=== PATIENT | male | born 1970 | race Caucasian/White ===

== ENCOUNTER 2021-09-01 07:38 | Day surgery (SDC) | payer BC ==
[2021-08-25 14:24] LABS: BASOPHILS # (AUTO) 0.1 X10'3 (0-0.2); BASOPHILS % (AUTO) 0.8 % (0-1); EOSINOPHILS # (AUTO) 0.2 X10'3 (0-0.9); EOSINOPHILS % (AUTO) 1.8 % (0-6); LYMPHOCYTES # (AUTO) 2.7 X10'3 (1.1-4.8); LYMPHOCYTES % (AUTO) 29.9 % (21-51); MEAN CORPUSCULAR HEMOGLOBIN 30.8 PG (27.0-31.0); MEAN CORPUSCULAR HGB CONC 34.8 g/dL (33.0-36.5); MEAN CORPUSCULAR VOLUME 88.5 FL (78-98); MEAN PLATELET VOLUME 8.6 FL (7.4-10.4); MONOCYTES # (AUTO) 0.7 X10'3 (0-0.9); MONOCYTES % (AUTO) 8.4 % (2-12); NEUTROPHILS # (AUTO) 5.3 X10'3 (1.8-7.7); NEUTROPHILS % (AUTO) 59.1 % (42-75); PRE OP HEMATOCRIT 39.4 % (42.0-52.0); PRE OP HEMOGLOBIN 13.7 g/dL (14.0-17.9); PRE OP PLATELET COUNT 253 X10'3 (140-440); RED BLOOD COUNT 4.45 X10'6 (4.70-6.10)
[2021-08-25 14:49] LABS: ALBUMIN 3.9 G/DL (3.4-5.0); ALBUMIN/GLOBULIN RATIO 1.3 (1.1-1.5); ALKALINE PHOSPHATASE 105 IU/L (46-116); BLOOD UREA NITROGEN 16 MG/DL (7-18); BUN/CREATININE RATIO 18.8 (5.4-32.0); CALCIUM 8.8 MG/DL (8.5-10.1); CHLORIDE 105 MMOL/L (99-107); CREATININE 0.85 MG/DL (0.60-1.10); PRE OP ALT 60 U/L (30-65); PRE OP ANION GAP 10 (8-16); PRE OP AST 28 U/L (10-37); PRE OP BILIRUB, TOTAL 0.6 MG/DL (0.0-1.0); PRE OP GLUCOSE 85 MG/DL (70-104); PRE OP POTASSIUM 3.9 MMOL/L (3.4-5.1); PRE OP SODIUM 141 MMOL/L (135-145); TOTAL CARBON DIOXIDE 26.2 MMOL/L (24-32); TOTAL PROTEIN 6.9 G/DL (6.4-8.2); eGFR > 90 ML/MIN
[~2021-09-01] VITALS: Ht 177.8 cm; Wt 71.9 kg
[2021-09-01] VITALS (7 sets, daily range): BP systolic 111–137; BP diastolic 69–84
[~2021-09-01 07:38] MED LIST: ceFAZolin inj. 2,000 MG in dextrose 5%-water 100 ML IV ONE; famotidine 20mg tablet PO ONE; ringers solution, lacted 1,000 ML IV SCH
[2021-09-01] MEDS ORDERED: NO HOME MEDS (08:15)
[2021-09-01] MEDS ORDERED: bacitracin 15gm ointment TP ONE (09:58)
[2021-09-01] MEDS ORDERED: BUPIVAcaine/PF 2.5mg/ml (0.25%) 10ml vial ONE (09:58)
[2021-09-01] MEDS ORDERED: sevoflurane 250ml liquid IH ONE (10:21)
[2021-09-01] MEDS ORDERED: MIDAZolam 1 MG/ML 5ML VIAL ONE (10:25)
[2021-09-01] MEDS ORDERED: fentaNYL/PF 50MCG/1 ML 2ML syringe ONE (10:25)
[2021-09-01] MEDS ORDERED: propofol inj 20 ML IV ONE ×2 (10:33)
[2021-09-01] MEDS ORDERED: LIDOcaine 1% 30ml preserv. free vial ONE (10:45)
[2021-09-01] MEDS ORDERED: morphine 4 MG/ML inj SYRINge IV PRN (11:10)
[2021-09-01] MEDS ORDERED: ringers solution, lacted 1,000 ML IV SCH (11:10)
[2021-09-01] MEDS ORDERED: proCHLORperazine 10 MG/2 ml inj IV PRN (11:10)
[2021-09-01] MEDS ORDERED: ondansetron/PF 4mg/2ml inj IV PRN (11:10)
[2021-09-01] MEDS ORDERED: meperidine/PF 25mg/ml syringe IV PRN ×3 (11:10)
[2021-09-01] MEDS ORDERED: morphine 2 MG/ML inj. syringe IV PRN (11:10)
--- NOTE | 2021-09-01 12:30 | NUR ---
Received from OR via JOSUE , accompanied by Anesthesiologist MIKIE and report given by Anesthesiolgist. PT IS GROGGY BUT WAKES TO VERBAL STIMULI. PT ANSWERS QUESTIONS APPROPRIATELY, MOVES ALL EXTREMITIES. PT PLACED ON BEDSIDE MONITOR, VSS. IS IN SR WITH RATE IN 60'S. PT RECEIVNG 10L O2 TO MASK AND TOLERATING WELL WITH 02 SATS >95%. PT HAS 20G PIV TO RT HAND WITH LR INFUSING ORDERED. DRSG TO RT FOOT IS CDI. PT DENIES PAIN AT THIS TIME. WILL CONTINUE TO ASSESS.
--- NOTE | 2021-09-01 13:40 | NUR ---
ALL DISCHARGE CRITERIA HAS BEEN MET. VSS, PAIN AT A TOLERABLE LEVEL, VOIDING AND ABLE TO SAFELY AMBULATE AND TRANSFER SELF. IV TAKEN OUT WITHOUT ANY COMPLICATIONS. ALL DISCHARGE INSTRUCTIONS COVERED WITH PATIENT AND ALL QUESTIONS ANSWERED. PATIENT TAKEN OUT VIA WHEELCHAIR TO PERSONAL VEHICLE WHERE DROVE PATIENT HOME.
== END 2021-09-01 13:36 | disposition home or self-care (01) ==
LOC: PAS 07:38
PROVIDERS: ATTEND Podiatrist Foot & Ankle Surgery
DX: M20.11 Hallux valgus (acquired), right foot (principal); M20.41 Other hammer toe(s) (acquired), right foot; Z79.899 Other long term (current) drug therapy; Z98.890 Other specified postprocedural states; F17.210 Nicotine dependence, cigarettes, uncomplicated
CPT/HCPCS: 28285; 28297; 36415; 73620; 80053; 82948; 85025; A6222; C1713; J0690; J2250; J2704; J3010; J3490; J7030; J7060; J7120; Z7506; Z7508; Z7512; 76000; A4618; A6253; A6449; A7000